=== PATIENT | male | born 1990 | race Caucasian/White ===

== ENCOUNTER 2017-08-17 06:13 | Emergency (ER) | payer SELFPAY ==
[2017-08-17] MEDS ORDERED: Lidocaine 1% w/Epinephrine 1:100K 20 ML VIAL ONE (06:24)
== END 2017-08-17 07:00 | disposition home or self-care (01) ==
LOC: ERS 06:13
DX: L02.31 Cutaneous abscess of buttock (principal); Z79.899 Other long term (current) drug therapy
CPT/HCPCS: 10060; J2001